=== PATIENT | female | born 1940 | race Caucasian/White ===

== ENCOUNTER 2021-02-07 21:37 | Emergency (ER) | payer MEDICARE, OTHER ==
[~2021-02-07] VITALS: Ht 162.6 cm; Wt 67.6 kg
--- NOTE | 2021-02-07 21:55 | NUR ---
PATIENT [id number] FROM HOME, TRIP AND FALL ON DRIVEWAY, INJURY TO NOSE, SLIGHT BLEEDING TDAP NOT UTD, DENIES LOC, DENIES BLOOD THINNNERS. PATIENT IS A/O X 4, RR EVEN AND UNLABORED, NO SIGNS OF SOB NOTED. PATIENT CONNECTED TO WAX POT TENDER AND POX.
[2021-02-07] MEDS ORDERED: TDAP [DIPH/PERTUSSIS/TET] 0.5 ML VIAL IM ONE ×2 (23:00→23:23)
--- NOTE | 2021-02-08 00:19 | NUR ---
PATIENT TAKEN TO CT
[2021-02-08] MEDS ORDERED: LIDOCAINE 1% INJ 50 ML MDV IJ ONE (00:25)
[2021-02-08 01:35] VITALS: BP 164/75
== END 2021-02-08 01:36 | disposition home or self-care (01) ==
LOC: ER 21:39
DX: S61.217A Laceration without foreign body of left little finger without damage to nail, initial encounter (principal); S00.33XA Contusion of nose, initial encounter; M25.562 Pain in left knee; I10 Essential (primary) hypertension; W01.0XXA Fall on same level from slipping, tripping and stumbling without subsequent striking against object, initial encounter; Y93.89 Activity, other specified; Y92.89 Other specified places as the place of occurrence of the external cause; Y99.8 Other external cause status
CPT/HCPCS: 12002; 70450; 70486; 73130; 73564; 90471; 90715; 99284; J3490

== ENCOUNTER 2022-10-13 15:30 | Emergency (ER) | payer MEDICARE ==
[~2022-10-13] VITALS: Ht 162.6 cm; Wt 63.5 kg
--- NOTE | 2022-10-13 15:40 | NUR ---
RECEIVED PT 82 YRS FEMALE CAME FROM HOME C/O ABDOMINALE PAIN WITH N/V LAST NIGHT
--- NOTE | 2022-10-13 16:00 | NUR ---
INSERTEDANGO CATHETER G 20 ON LT BLOOD AND SENT TO LAB
[2022-10-13] MEDS ORDERED: ONDANSETRON HCL/PF 4 MG/2 ML VIAL ONE (16:25)
[2022-10-13] MEDS ORDERED: IV NS 0.9% 1,000 ML BAG IV ONE (16:30)
[2022-10-13] MEDS ORDERED: ONDANSETRON HCL/PF 4 MG/2 ML VIAL IVP ONE (16:30)
--- NOTE | 2022-10-13 16:45 | NUR ---
TO CT SCAN OF ABDOMIN VIA SANDER
[2022-10-13 16:57] LABS: BASOPHILS % (AUTO) 0.3 % (0.0-2.0); HEMATOCRIT 39 % (33-45); HEMOGLOBIN 12.8 g/dL (11.5-14.8); LYMPHOCYTES # (AUTO) 0.6 K/uL (0.8-4.8); LYMPHOCYTES % (AUTO) 6.4 % (20.0-44.0); MEAN CORPUSCULAR HGB CONC 33 g/dl (31.0-36.0); MEAN CORPUSCULAR VOLUME 92 fL (82-100); MONOCYTES # (AUTO) 0.6 K/uL (0.1-1.30); MONOCYTES % (AUTO) 6.4 % (2.0-12.0); NEUTROPHILS # (AUTO) 7.8 K/uL (1.8-8.9); NEUTROPHILS % (AUTO) 85.9 % (43.0-81.0); PLATELET COUNT (AUTO) 216 K/uL (150-450); RED BLOOD CELL COUNT(AUTO) 4.31 MIL/uL (4.0-5.2); WHITE BLOOD COUNT (AUTO) 9.1 K/uL (4.3-11.0)
--- NOTE | 2022-10-13 17:08 | NUR ---
DINESES ABDOMINALE PAIN
[2022-10-13 17:10] LABS: CALCIUM, SERUM 9.1 mg/dL (8.5-10.1); CREATININE 0.8 mg/dL (0.6-1.3); POTASSIUM 3.8 mmol/L (3.5-5.1)
[2022-10-13 17:16] LABS: ALBUMIN 3.4 g/dL (3.4-5.0); BILIRUBIN,DIRECT 0.2 mg/dL (0.0-0.2); BILIRUBIN,TOTAL 0.7 mg/dL (0.2-1.0); TOTAL PROTEIN, SERUM 6.8 g/dL (6.4-8.2)
[2022-10-13 17:22] LABS: BILIRUBIN,URINE 1+ (NEGATIVE); COLOR,URINE YELLOW (YELLOW); LEUKOCYTE ESTERASE ,URINE NEGATIVE (NEGATIVE); NITRITE, URINE NEGATIVE (NEGATIVE); PH,URINE 5.5 (5.0-8.0); PROTEIN,URINE NEGATIVE (NEGATIVE); UGLUCOSE NEGATIVE (NEGATIVE); UROBILINOGEN,URINE 0.2 EU/dL (0.2)
[2022-10-13 17:36] LABS: BACTERIA,URINE RARE /HPF (None Seen); MUCUS,URINE Few /LPF (None Seen); RBC,URINE 21-50 /HPF (0-2)
[2022-10-13] MEDS ORDERED: ONDA4TAB5 PO (18:47)
--- NOTE | 2022-10-13 19:00 | NUR ---
IV removed. Catheter intact and site benign. Pressure and 4x4 applied to site. No bleeding noted.
--- NOTE | 2022-10-13 19:03 | NUR ---
Patient discharged to home in stable condition. Written and verbal after care instructions given. Patient verbalizes understanding of instruction.
[2022-10-13 19:09] VITALS: BP 149/59
== END 2022-10-13 19:26 | disposition home or self-care (01) ==
LOC: ER 15:40
DX: R10.9 Unspecified abdominal pain (principal); R19.7 Diarrhea, unspecified; R11.2 Nausea with vomiting, unspecified; I10 Essential (primary) hypertension
CPT/HCPCS: 99284; 74176; 96374; 96361; 85025; 80048; 83690; 80076; 81001; 36415; 85730; J2405; J7030